=== PATIENT | female | born 1995 | race Two or more races ===

== ENCOUNTER 2021-05-07 07:00 | Outpatient (CLI) | payer OTHER | END 2021-05-07 07:25 | disposition home or self-care (01) | LOC: PPH VACUNA 07:00 | PROVIDERS: ATTEND Emergency Medicine Pediatric Emergency Medicine | DX: Z23 Encounter for immunization (principal) ==

== ENCOUNTER → 2022-11-01 | Outpatient (CLI) | payer OTHER | END | disposition home or self-care (01) | LOC: SONOGRAMA 11:09 | DX: R10.12 Left upper quadrant pain (principal) ==

== ENCOUNTER 2023-10-24 15:00 | Outpatient (CLI) | payer OTHER | END 2023-10-24 15:07 | disposition home or self-care (01) | LOC: RAD 15:00 | PROVIDERS: ATTEND Physical Medicine & Rehabilitation Sports Medicine | DX: M54.2 Cervicalgia (principal); M54.6 Pain in thoracic spine; M25.511 Pain in right shoulder ==

== ENCOUNTER 2024-04-09 08:09 | Outpatient (CLI) | payer OTHER | END 2024-04-09 08:11 | disposition home or self-care (01) | LOC: MRI 08:09 | PROVIDERS: ATTEND Physical Medicine & Rehabilitation Sports Medicine | DX: M54.6 Pain in thoracic spine (principal) | CPT/HCPCS: 72146 ==

== ENCOUNTER 2024-07-24 11:45 | Outpatient (CLI) | payer OTHER | END 2024-07-24 13:33 | disposition home or self-care (01) | LOC: MRI 11:45 | DX: M54.50 Low back pain, unspecified (principal) | CPT/HCPCS: 72148 ==

== ENCOUNTER 2024-09-27 16:48 | Outpatient (CLI) | payer OTHER | END 2024-09-27 16:58 | disposition home or self-care (01) | LOC: RAD 16:48 | DX: S99.922A Unspecified injury of left foot, initial encounter (principal); X58.XXXA Exposure to other specified factors, initial encounter; Y93.9 Activity, unspecified; Y92.9 Unspecified place or not applicable; Y99.9 Unspecified external cause status ==

== ENCOUNTER 2025-01-04 10:15 | Outpatient (CLI) | payer OTHER | END 2025-01-04 10:16 | disposition home or self-care (01) | LOC: RAD 10:15 | DX: M17.12 Unilateral primary osteoarthritis, left knee (principal); M25.561 Pain in right knee ==

== ENCOUNTER 2025-05-06 11:18 | Outpatient (CLI) | payer OTHER | END 2025-05-06 11:21 | disposition home or self-care (01) | LOC: SONOGRAMA 11:18 | DX: M25.511 Pain in right shoulder (principal); M75.51 Bursitis of right shoulder ==